=== PATIENT | female | born 1995 | race Caucasian/White ===

== ENCOUNTER 2021-02-16 06:07 | Day surgery (SDC) | payer BC ==
[2021-02-08 14:30] LABS: BASOPHILS % (AUTO) 0.3 % (0-1); EOSINOPHILS # (AUTO) 0.2 X10'3 (0-0.9); LYMPHOCYTES # (AUTO) 2.6 X10'3 (1.1-4.8); LYMPHOCYTES % (AUTO) 25.7 % (21-51); MEAN CORPUSCULAR HEMOGLOBIN 28.8 PG (27.0-31.0); MEAN CORPUSCULAR HGB CONC 33.4 g/dL (33.0-36.5); MEAN CORPUSCULAR VOLUME 86.2 FL (78-98); MEAN PLATELET VOLUME 7.5 FL (7.4-10.4); MONOCYTES # (AUTO) 0.7 X10'3 (0-0.9); MONOCYTES % (AUTO) 6.8 % (2-12); NEUTROPHILS # (AUTO) 6.7 X10'3 (1.8-7.7); NEUTROPHILS % (AUTO) 65.2 % (42-75); PRE OP HEMATOCRIT 39.1 % (35.0-45.0); PRE OP HEMOGLOBIN 13.1 g/dL (12.0-16.0); PRE OP PLATELET COUNT 333 X10'3 (140-440); RED BLOOD COUNT 4.54 X10'6 (4.20-5.60); RED CELL DISTRIBUTION WIDTH 13.9 % (11.5-14.5)
[2021-02-08 14:47] LABS: ALBUMIN 3.6 G/DL (3.4-5.0); ALBUMIN/GLOBULIN RATIO 0.8 (1.1-1.5); ALKALINE PHOSPHATASE 59 IU/L (46-116); BLOOD UREA NITROGEN 13 MG/DL (7-18); BUN/CREATININE RATIO 16.9 (6.6-38.0); CALCIUM 9.1 MG/DL (8.5-10.1); CHLORIDE 105 MMOL/L (99-107); CREATININE 0.77 MG/DL (0.40-0.90); PRE OP ALT 27 U/L (30-65); PRE OP ANION GAP 10 (8-16); PRE OP AST 18 U/L (10-37); PRE OP BILIRUB, TOTAL 0.2 MG/DL (0.0-1.0); PRE OP GLUCOSE 99 MG/DL (70-104); PRE OP POTASSIUM 3.8 MMOL/L (3.4-5.1); PRE OP SODIUM 142 MMOL/L (135-145); eGFR > 90 ML/MIN
[2021-02-08 14:48] LABS: HCG SERUM QL NEGATIVE
[~2021-02-16] VITALS: Ht 167.6 cm; Wt 118.0 kg
[~2021-02-16 06:07] MED LIST: IBUP200C5 PO; LORA10TA7 PO; SERT-433 PO; TERB250T4 PO; ceFAZolin/D5W- 1GM premix 50 ML IV ONE; cefazolin/dext.iso 2gm/100ml 100 ML IV ONE; famotidine 20mg tablet PO ONE; ringers solution, lacted 1,000 ML IV SCH
[2021-02-16 06:30] VITALS: BP 149/89
[2021-02-16] MEDS ORDERED: BUPIVAcaine/PF 2.5mg/ml (0.25%) 10ml vial ONE (08:21)
[2021-02-16] MEDS ORDERED: epiNEPHrine 1 mg/ml inj ONE (08:21)
[2021-02-16] MEDS ORDERED: fentaNYL/PF 50MCG/1 ML 2ML syringe ONE (08:34)
[2021-02-16] MEDS ORDERED: midazolam 1 mg/ML 2ml injection ONE (08:38)
[2021-02-16] MEDS ORDERED: LIDOcaine 2% 5ml jelly ONE (08:38)
[2021-02-16] MEDS ORDERED: LIDOcaine 2% (20mg/ml) 5ml vial ONE (08:46)
[2021-02-16] MEDS ORDERED: rocuronium 10mg/ml inj IV ONE (08:46)
[2021-02-16] MEDS ORDERED: propofol inj 20 ML IV ONE (08:46)
[2021-02-16] MEDS ORDERED: neostigmine methylsulfate 1 MG/ML 10ml vial ONE (09:09)
[2021-02-16] MEDS ORDERED: glycopyrrolate 0.2mg/ml inj ONE (09:10)
[2021-02-16 09:20] VITALS: BP 141/96
--- NOTE | 2021-02-16 09:20 | NUR ---
Received from OR via [facility] , accompanied by Anesthesiologist JERRY and report given by Anesthesiolgist. PATIENT WITH 20G PIV IN RIGHT UE RUNNING LR AT 100. DENIES PAIN. ONE BANDAID TO ABDOMEN THAT IS CDI AT THIS TIME WITH A BRENNEN PAD IN PLACE WHICH IS ALSO CDI. 10L MASK ON WITH 100% SATURATIONS. TAYLOR VOSS ON FOR PATIENT COMFORT. Addendum: 02/16/21 at 0929 by Reji Jacinto RN, RN Amended: Links added.
[2021-02-16 09:30] VITALS: BP 137/89
[2021-02-16 09:40] VITALS: BP 141/89
[2021-02-16 09:50] VITALS: BP 128/85
[2021-02-16 10:00] VITALS: BP 131/88
--- NOTE | 2021-02-16 10:10 | NUR ---
PATIENT VERBALIZED UNDERSTANDING, OPPORTUNITY TO ASK QUESTIONS GIVEN AND PATIENT COMFORTABLE WITH DC. IV TAKEN OUT WITHOUT COMPLICATION. PATIENT HAS MET ALL DC CRITERIA FOR DC HOME. I HAVE REVIEWED D/C INSTRUCTIONS WITH PATIENT. TAKEN OUT VIA WHEELCHAIR WHERE PATIENT WAS TAKEN HOME WITH ALL BELONGINGS. FAMILY GAVE PATIENT TRANSPORT HOME. Addendum: 02/16/21 at 1018 by Reji Jacinto RN, RN Amended: Links added.
== END 2021-02-16 10:10 | disposition home or self-care (01) ==
LOC: PAS 06:07
PROVIDERS: ATTEND Obstetrics & Gynecology
DX: Z30.2 Encounter for sterilization (principal); F32.9 Major depressive disorder, single episode, unspecified; G43.909 Migraine, unspecified, not intractable, without status migrainosus; Z79.899 Other long term (current) drug therapy
CPT/HCPCS: 36415; 58670; 80053; 82948; 84703; 85025; J0171; J0690; J2001; J2250; J2704; J2710; J3010; J3490; J7120; A4618